=== PATIENT | male | born 1995 | race Hispanic/Latino ===

== ENCOUNTER 2022-08-25 13:47 | Emergency (ER) | payer MEDICAID, OTHER ==
[~2022-08-25 13:47] MED LIST: IBUP-2070 PO; KETO10TA2 PO; PRED10TA3 PO
[2022-08-25] MEDS ORDERED: OMEP20CA12 PO (15:11)
== END 2022-08-25 18:08 | disposition home or self-care (01) ==
LOC: EDH 13:47
DX: K21.9 Gastro-esophageal reflux disease without esophagitis (principal); Z79.899 Other long term (current) drug therapy
CPT/HCPCS: 99282